=== PATIENT | female | born 1980 | race African-American/Black ===

== ENCOUNTER 2019-08-23 04:50 | Emergency (ER) | payer MEDICAID ==
[~2019-08-23] VITALS: Ht 157.5 cm; Wt 88.3 kg
[~2019-08-23 04:50] MED LIST: IBUPROFEN
[2019-08-23 05:46] VITALS: BP 128/90
== END 2019-08-23 05:53 | disposition home or self-care (01) ==
LOC: ER 04:50
DX: K04.7 Periapical abscess without sinus (principal); J45.909 Unspecified asthma, uncomplicated; Z98.890 Other specified postprocedural states; Z88.8 Allergy status to other drugs, medicaments and biological substances
CPT/HCPCS: 99281

== ENCOUNTER 2022-02-06 06:12 | Emergency (ER) | payer MEDICAID ==
[~2022-02-06] VITALS: Ht 157.5 cm; Wt 79.3 kg
[2022-02-06 06:52] VITALS: BP 129/82
[2022-02-06] MEDS ORDERED: LIDOCAINE HCL/PF 1% 10 MG/ML 5ML VIAL INFIL ONE (08:15)
[2022-02-06] MEDS ORDERED: BACITRACIN ZINC OINT UDPKT TOP ONE (08:15)
[2022-02-06] MEDS ORDERED: SULF1TAB48 MT ×2 (08:39→09:35)
[2022-02-06] MEDS ORDERED: ACET-2708 MT ×2 (08:39→09:35)
[2022-02-06] MEDS ORDERED: ACETAMINOPHEN 325MG TABLET PO ONE (08:45)
[2022-02-06] MEDS ORDERED: SULFAMETHOXAZOLE/TRIMETHOPRIM 800/160MG TABLET PO ONE (09:30)
[2022-02-06] MEDS ORDERED: DOXY-326 MT (09:35)
== END 2022-02-06 09:43 | disposition home or self-care (01) ==
LOC: ER 06:12
DX: L02.11 Cutaneous abscess of neck (principal); F17.210 Nicotine dependence, cigarettes, uncomplicated; J45.909 Unspecified asthma, uncomplicated; F12.10 Cannabis abuse, uncomplicated; Z98.890 Other specified postprocedural states
CPT/HCPCS: 10060; 99283; J3490